=== PATIENT | female | born 1950 | race Caucasian/White ===

== ENCOUNTER 2021-11-13 11:07 | Outpatient (CLI) | payer MEDICARE, OTHER, SELFPAY | END 2021-11-19 10:46 | disposition home or self-care (01) | LOC: PHYS 11:08 | PROVIDERS: Family Provider Internal Medicine; PCP Internal Medicine; Referring Provider Internal Medicine; Visit Provider Internal Medicine | DX: G56.03 Carpal tunnel syndrome, bilateral upper limbs (principal) | CPT/HCPCS: 95885; 95886; 95910 ==

== ENCOUNTER → 2022-10-20 12:01 | Outpatient (CLI) | payer MEDICARE, OTHER, SELFPAY ==
--- NOTE | 2022-10-20 12:02 | DI.MRI.S_ITS ---
PROCEDURE: MR ELBOW RT WO CON INDICATIONS: Cubital tunnel syndrome on right TECHNIQUE: Noncontrast coronal proton density fast spin echo and T2 fast spin echo with fat saturation, axial and sagittal T1 spin echo and T2 fast spin echo with fat saturation through the elbow. COMPARISON: None. FINDINGS: Image quality: Diagnostic. Patient motion is noted. Lateral structures: The lateral ulnar collateral ligament and radial collateral ligament both appear intact. The overlying common extensor tendon also appears normal. Medial structures: The ulnar collateral ligament appears intact. The overlying common flexor tendon appears mildly thickened with intrasubstance T2 hyperintense signal at its medial epicondylar insertion. The ulnar nerve appears normal in size and signal within the cubital tunnel. Anterior structures: The biceps and brachialis tendons both appear intact as they insert onto the proximal radius and ulna, respectively. No bicipitoradial bursal fluid. The median and radial neurovascular bundles appear normal; no focal muscle atrophy to suggest nerve impingement. Posterior structures: Distal triceps tendon is thickened at the level of proximal olecranon on with adjacent soft tissue edema. No olecranon bursal fluid. 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 No marrow edema or bony erosive changes. No fracture or dislocation. No osteochondral injuries. IMPRESSION: 1. Dorsal elbow soft tissue swelling over the olecranon near triceps tendon insertion. No discrete drainable fluid collection. 2. Distal triceps tendinosis at its olecranon insertion. No triceps tendon rupture. 3. Tendinosis involving common flexor tendon origins at medial epicondyle. 4. No gross signal abnormality is seen in the ulnar nerve at the level of cubital tunnel. Dictated by: Prudencio Pompa M.D. on 10/20/2022 at 15:17 Approved by: Prudencio Pompa M.D. on 10/20/2022 at 15:30
== END ==
PROVIDERS: Family Provider Internal Medicine; PCP Internal Medicine; Referring Provider Orthopaedic Surgery; Visit Provider Orthopaedic Surgery
DX: G56.21 Lesion of ulnar nerve, right upper limb (principal); M79.89 Other specified soft tissue disorders
CPT/HCPCS: 73221